=== PATIENT | female | born 1945 | race Caucasian/White ===

== ENCOUNTER 2017-05-01 06:20 | Day surgery (SDC) | payer MEDICARE, OTHER ==
[2017-05-01] MEDS ORDERED: fentaNYL 100 MCG/2 ML SDV ONE (07:11)
[2017-05-01] MEDS ORDERED: Propofol 200 MG/20 ML SDV ONE ×2 (07:11→07:56)
[2017-05-01] MEDS: Lactated Ringers 1,000 ML IV SCH ×2 (07:13→13:04)
[2017-05-01] MEDS ORDERED: Dicyclomine 10 MG Cap PO ONE (11:00)
[2017-05-01 13:17] VITALS: BP 159/87
--- NOTE | 2017-05-01 14:07 | OR ---
DATE OF PROCEDURE: 05/01/2017 PREOPERATIVE DIAGNOSIS: Colon cancer screening. POSTOPERATIVE DIAGNOSIS: Diverticulosis, three colon polyps. PROCEDURE PERFORMED: Colonoscopy to the cecum with snare cautery polypectomy of cecal polyp, biopsy and snare cautery polypectomy of right colon polyp, and biopsy resection of rectal polyp. ANESTHESIA: Subarachnoid block. INDICATION: This 72-year-old white female is referred for a colonoscopy for colon cancer screening. She says her last colonoscopic exam was done elsewhere about 10 years ago. I counseled her for the procedure including risks and alternatives, and she gave her informed consent to proceed. DESCRIPTION OF PROCEDURE: The patient was placed in the left lateral decubitus position. IV anesthesia was administered by the Anesthesia Service. Time-out was held. A rectal exam was performed, which was unremarkable. The flexible video Olympus colonoscope was introduced through her anus, up her rectum, and out her colon, all the way to the cecum. EN route, we saw several left-sided diverticula. There was no bleeding or inflammation associated with any of them. In the cecum, we saw a sessile polyp which was removed with the snare, this involved placing the snare about its base, elevating up away from bowel wall, applying electrocautery as was amputated. The polyp was aspirated through the scope and captured in a polyp trap. There was some residual polypoid tissue which was removed, this had the appearance of a serrated sessile adenoma. The scope was then slowly withdrawn, examining the mucosa throughout. In the right colon, we saw another polyp. We initially biopsied it, it was too large to remove using this technique. The snare was passed about its base, it was elevated up away from the bowel wall as electrocautery was applied amputating the polyp. The scope was withdrawn further. No other lesions were noted other than diverticula until the rectum was reached. Here, a small polyp was seen, which was removed with the biopsy forceps. The scope was retroflexed in the rectum with the distal rectum appearing unremarkable. The scope was straightened and removed. She tolerated the procedure well. Adis Medina MD /[id number]
[2017-05-01] MEDS ORDERED: Lidocaine 1% 2 ML ONE (14:23)
== END 2017-05-01 13:15 | disposition home or self-care (01) ==
LOC: JP.SDS 06:20
PROVIDERS: ATTEND Surgery
DX: Z12.11 Encounter for screening for malignant neoplasm of colon (principal); D12.0 Benign neoplasm of cecum; D12.2 Benign neoplasm of ascending colon; K62.1 Rectal polyp; K57.30 Diverticulosis of large intestine without perforation or abscess without bleeding; I12.9 Hypertensive chronic kidney disease with stage 1 through stage 4 chronic kidney disease, or unspecified chronic kidney disease; N18.9 Chronic kidney disease, unspecified; K21.9 Gastro-esophageal reflux disease without esophagitis; Z79.899 Other long term (current) drug therapy
CPT/HCPCS: 45380; 45385; A9270; J2704; J3010; J7120; 88305

== ENCOUNTER 2018-02-19 11:28 | Emergency (ER) | payer MEDICARE, OTHER ==
[2018-02-19 11:46] VITALS: BP 146/70
--- NOTE | 2018-02-19 12:31 | EDM.PDOC ---
ED HPI GENERAL MEDICAL PROBLEM - General Chief Complaint: General Stated Complaint: RIGHT EAR, RIGHT SHOULDER, BOTH KNEES HURT Time Seen by Provider: 02/19/18 12:16 Source of Information: Reports: Patient, Family, RN Notes Reviewed History Limitations: Reports: No Limitations - History of Present Illness INITIAL COMMENTS - FREE TEXT/NARRATIVE: 73-year-old female presents to the emergency department today with complaint of right ear pain for the last 2 weeks, right shoulder pain for the last 6 weeks and right knee pain for the last 2 months. She states she denies any trauma no repetitive motion she has used Tylenol only once a day which has provided relief but she is concerned about taking any more Tylenol. She is on dialysis for end-stage renal disease peritoneal which she does at home. Denies any nausea, vomiting, fevers, shortness of breath, chest pain, or GI symptomatology. right ear right shoulder, right knee and left knee Pain Score (Numeric/FACES): 8 - Related Data Allergies Allergy/AdvReac Type Severity Reaction Status Date / Time No Known Allergies Allergy Verified 02/19/18 11:47 Home Meds: Home Meds Metoprolol Tartrate 25 mg PO BID 04/26/17 [History] Mirtazapine [Remeron] 15 mg PO BEDTIME 04/26/17 [History] Polyethylene Glycol 3350 [MiraLAX] 3 tbsp PO DAILY 04/26/17 [History] Vitamin B Complex [B Complex] 1 each PO DAILY 04/26/17 [History] Past Medical History HEENT History: Reports: Impaired Vision Cardiovascular History: Reports: Hypertension Gastrointestinal History: Reports: Chronic Constipation 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 History: Reports: Psychiatric History: Reports: Bipolar, Depression - Infectious Disease History Infectious Disease History: Reports: Measles - Past Surgical History HEENT Surgical History: Reports: Tonsillectomy Cardiovascular Surgical History: Reports: None GI Surgical History: Reports: Colonoscopy Female Surgical History: Reports: Hysterectomy Social & Family History - Family History Family Medical History: Noncontributory - Tobacco Use Smoking Status *Q: Former Smoker Used Tobacco, but Quit: Yes Month/Year Tobacco Last Used: 40 years - Caffeine Use Caffeine Use: Reports: Coffee - Recreational Drug Use Recreational Drug Use: No ED ROS GENERAL - Review of Systems Review Of Systems: See Below Constitutional: Reports: No Symptoms HEENT: Reports: Ear Pain (Right side) Respiratory: Reports: No Symptoms Cardiovascular: Reports: No Symptoms GI/Abdominal: Reports: No Symptoms : Reports: No Symptoms Musculoskeletal: Reports: Shoulder Pain, Joint Pain (Knee pain) Skin: Reports: Rash Neurological: Reports: No Symptoms ED EXAM, GENERAL - Physical Exam Exam: See Below Free Text/Narrative:: General: Female, not in any distress, alert and oriented x3 HEENT: head is atraumatic normocephalic, eyes pupils equal round reactive to light, sclera clear no conjunctivitis appreciated. Ears tympanic membranes clear and rojas landmarks and light reflex are present bilaterally canals are clear. Nose no septal deviation, nares are clear, no blood present. Mouth mucosa is moist and pink no erythema or exudate noted in soft palate, tongue is midline uvula is midline, dentition is intact. Neck: Supple no thyromegaly no tracheal deviation. Nodes: Cervical nodes subclavicular nodes nontender no palpable lymphadenopathy noted. Lungs: clear to auscultation bilaterally with symmetrical respirations, no adventitious noise appreciated. CV: Regular rate and rhythm S1 and S2 appreciated no murmurs rubs or gallops noted. Abdomen: Soft, nontender, no palpable masses or organomegaly appreciated, no distention no guarding bowel sounds are present, Neuro: Cranial nerves II through XII grossly intact Skin: Warm and dry, intact Extremities: No limitation of right shoulder I don't appreciate any erythema there is no edema noted she only has limited range of motion of approximately 90 abduction, examination the right knee I don't appreciate any erythema there is no edema noted there is no joint line tenderness varus valgus maneuvers are negative Kristina's is negative, pedal pulse is +2 Course - Vital Signs Last Recorded V/S: Last Vital Signs Temp 98.0 F 02/19/18 11:41 Pulse 62 02/19/18 11:41 Resp 18 02/19/18 11:41 BP 146/70 H 02/19/18 11:41 Pulse Ox 100 02/19/18 11:41 - Orders/Labs/Meds Orders: Active Orders 24 hr Category Date Time Status URIC ACID [CHEM] Stat Lab 02/19/18 12:40 Ordered Labs: Laboratory Tests 02/19/18 02/19/18 02/19/18 Range/Units 12:40 12:40 12:40 WBC 8.7 (4.5-11.0) K/uL RBC 3.68 (3.30-5.50) M/uL Hgb 11.7 L (12.0-15.0) g/dL Hct 36.0 (36.0-48.0) % MCV 98 (80-98) fL MCH 32 H (27-31) pg MCHC 33 (32-36) % Plt Count 189 (150-400) K/uL Neut % (Auto) 70 H (36-66) % Lymph % (Auto) 20 L (24-44) % [place] % (Auto) 8 H (2-6) % Eos % (Auto) 2 (2-4) % Baso % (Auto) 0 (0-1) % Sodium 146 (140-148) mmol/L Potassium 4.1 (3.6-5.2) mmol/L Chloride 110 H (100-108) mmol/L Carbon Dioxide 22 (21-32) mmol/L Anion Gap 18.1 H (5.0-14.0) mmol/L BUN 45 H (7-18) mg/dL Creatinine 7.3 H* (0.6-1.0) mg/dL Est Cr Clr Drug Dosing 5.84 mL/min Estimated GFR (MDRD) 5 L (>60) Glucose 87 (74-106) mg/dL Uric Acid 7.6 H (2.6-6.2) mg/dL Calcium 9.3 (8.5-10.1) mg/dL Total Bilirubin 0.4 (0.2-1.0) mg/dL AST 17 (15-37) U/L ALT 27 (12-78) U/L Alkaline Phosphatase 90 (46-116) U/L Troponin I (0.000-0.056) ng/mL Total Protein 6.3 L (6.4-8.2) g/dL Albumin 3.0 L (3.4-5.0) g/dL Globulin 3.3 (2.3-3.5) g/dL Albumin/Globulin Ratio 0.9 L (1.2-2.2) / Range/Units 12:40 WBC (4.5-11.0) K/uL RBC (3.30-5.50) M/uL Hgb (12.0-15.0) g/dL Hct (36.0-48.0) % MCV (80-98) fL MCH (27-31) pg MCHC (32-36) % Plt Count (150-400) K/uL Neut % (Auto) (36-66) % Lymph % (Auto) (24-44) % [place] % (Auto) (2-6) % Eos % (Auto) (2-4) % Baso % (Auto) (0-1) % Sodium (140-148) mmol/L Potassium (3.6-5.2) mmol/L Chloride (100-108) mmol/L Carbon Dioxide (21-32) mmol/L Anion Gap (5.0-14.0) mmol/L BUN (7-18) mg/dL Creatinine (0.6-1.0) mg/dL Est Cr Clr Drug Dosing mL/min Estimated GFR (MDRD) (>60) Glucose (74-106) mg/dL Uric Acid (2.6-6.2) mg/dL Calcium (8.5-10.1) mg/dL Total Bilirubin (0.2-1.0) mg/dL AST (15-37) U/L ALT (12-78) U/L Alkaline Phosphatase (46-116) U/L Troponin I < 0.017 (0.000-0.056) ng/mL Total Protein (6.4-8.2) g/dL Albumin (3.4-5.0) g/dL Globulin (2.3-3.5) g/dL Albumin/Globulin Ratio (1.2-2.2) Departure - Departure Time of Disposition: 13:57 Disposition: Home, Self-Care 01 Condition: Fair Clinical Impression: Frozen shoulder Qualifiers: Laterality: right Qualified Code(s): M75.01 - Adhesive capsulitis of right shoulder - Discharge Information Referrals: Katrin Floyd PA [Primary Care Provider] - Forms: ED Department Discharge Additional Instructions: Try Tylenol as needed for pain control may take 650 mg 3 times a day, please report to orthopedics tomorrow for further evaluation of the shoulder - My Orders Last 24 Hours: My Active Orders 02/19/18 12:40 URIC ACID [CHEM] Stat - Assessment/Plan Last 24 Hours: My Active Orders 02/19/18 12:40 URIC ACID [CHEM] Stat Plan: Assessment Acuity = acute Site and laterality = frozen shoulder right side, osteoarthritis right knee Etiology = unclear etiology Manifestations = none Location of injury = Home Lab values = CBC unremarkable, creatinine elevated at 7.3 consistent with end- stage renal disease stage VD, uric acid elevated at 7.6 of uncertain significance, x-rays describe shoulder and knee above Plan Called discussed case with orthopedics she will have an appointment with orthopedics tomorrow for shoulder injection and further evaluation as needed, she is going to use Tylenol for pain control This note was dictated using [employer] voice recognition software please call with any questions on syntax or grammar.
--- NOTE | 2018-02-19 13:15 | CR ---
Shoulder Comp Rt INDICATION: pain FINDINGS: Minimal hypertrophic change AC joint. Glenohumeral joint is intact. Exam otherwise negative .
--- NOTE | 2018-02-19 13:16 | CR ---
Knee 3V Rt INDICATION: pain FINDINGS: Moderate medial compartment narrowing and hypertrophic change. Hypertrophic change patellof emoral compartment. Knee effusion or synovitis.
== END 2018-02-19 14:29 | disposition home or self-care (01) ==
LOC: JP.ED 11:28
DX: M75.01 Adhesive capsulitis of right shoulder (principal); I10 Essential (primary) hypertension; Z79.899 Other long term (current) drug therapy; Z87.891 Personal history of nicotine dependence
CPT/HCPCS: 36415; 73030-26-RT; 73030-RT; 73562-26-RT; 73562-RT; 80053; 84484; 84550; 85025; 99284-25

== ENCOUNTER 2018-06-24 11:57 | Emergency (ER) | payer MEDICARE, OTHER ==
[2018-06-24] MEDS ORDERED: fentaNYL 100 MCG/2 ML SDV IVPUSH ONE (13:43)
[2018-06-24] MEDS ORDERED: Lactated Ringers 1,000 ML IV SCH (13:45)
--- NOTE | 2018-06-24 13:47 | EDM.PDOC ---
ED HPI GENERAL MEDICAL PROBLEM - General Chief Complaint: Abdominal Pain Stated Complaint: ABD PAINS Time Seen by Provider: 06/24/18 13:00 Source of Information: Reports: Patient, Family, RN Notes Reviewed History Limitations: Reports: No Limitations - History of Present Illness INITIAL COMMENTS - FREE TEXT/NARRATIVE: 73-year-old female presents to the emergency department today complaint of abdominal pain, she does have a known history of peritoneal dialysis states she' s had increasing abdominal pain for the last 24 hours as well as chills, no nausea no vomiting no shortness of breath no fevers lower abdomen Pain Score (Numeric/FACES): 8 - Related Data Allergies Allergy/AdvReac Type Severity Reaction Status Date / Time No Known Allergies Allergy Verified 02/19/18 11:47 Home Meds: Home Meds Metoprolol Tartrate 25 mg PO BID 04/26/17 [History] Mirtazapine [Remeron] 15 mg PO BEDTIME 04/26/17 [History] Polyethylene Glycol 3350 [MiraLAX] 3 tbsp PO DAILY 04/26/17 [History] Vitamin B Complex [B Complex] 1 each PO DAILY 04/26/17 [History] Past Medical History HEENT History: Reports: Impaired Vision Cardiovascular History: Reports: Hypertension Gastrointestinal History: Reports: Chronic Constipation 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: Musculoskeletal History: Reports: Other (See Below) Other Musculoskeletal History: bilaterat knee and rt shoulder pain, neck pain Psychiatric History: Reports: Bipolar, Depression - Infectious Disease History Infectious Disease History: Reports: Measles - Past Surgical History HEENT Surgical History: Reports: Tonsillectomy GI Surgical History: Reports: Colonoscopy, Other (See Below) Other GI Surgeries/Procedures: peritional dialysis catheter Female Surgical History: Reports: Hysterectomy Social & Family History - Family History Family Medical History: Noncontributory - Tobacco Use Smoking Status *Q: Never Smoker Second Hand Smoke Exposure: No - Caffeine Use Caffeine Use: Reports: Coffee, Soda, Tea - Recreational Drug Use Recreational Drug Use: No ED ROS GENERAL - Review of Systems Review Of Systems: See Below Constitutional: Reports: Chills. Denies: Fever HEENT: Reports: No Symptoms Respiratory: Reports: No Symptoms Cardiovascular: Reports: No Symptoms GI/Abdominal: Reports: Abdominal Pain. Denies: Nausea : Reports: No Symptoms Musculoskeletal: Reports: No Symptoms Skin: Reports: No Symptoms ED EXAM, GI/ABD - Physical Exam Exam: See Below Text/Narrative:: General: Female, not in any distress, alert and oriented x3 HEENT: head is atraumatic normocephalic, eyes pupils equal round reactive to light, sclera clear no conjunctivitis appreciated. Ears tympanic membranes clear and rojas landmarks and light reflex are present bilaterally canals are clear. Nose no septal deviation, nares are clear, no blood present. Mouth mucosa is moist and pink no erythema or exudate noted in soft palate, tongue is midline uvula is midline, dentition is intact. Neck: Supple no thyromegaly no tracheal deviation. Nodes: Cervical nodes subclavicular nodes nontender no palpable lymphadenopathy noted. Lungs: clear to auscultation bilaterally with symmetrical respirations, no adventitious noise appreciated. CV: Regular rate and rhythm S1 and S2 appreciated no murmurs rubs or gallops noted. Abdomen: Soft, generalized tenderness to palpation, no palpable masses or organomegaly appreciated, no distention no guarding bowel sounds are present, . Neuro: Cranial nerves II through XII grossly intact Skin: Warm and dry, intact Extremities: No lower extremity edema appreciated, Course - Vital Signs Last Recorded V/S: Last Vital Signs Temp 97.9 F 06/24/18 12:48 Pulse 69 06/24/18 12:48 Resp 16 06/24/18 12:48 BP 142/73 H 06/24/18 12:48 Pulse Ox 99 06/24/18 12:48 - Orders/Labs/Meds Orders: Active Orders 24 hr Category Date Time Status CULTURE BLOOD [BC] Routine Lab 06/24/18 13:39 Received CULTURE BLOOD [BC] Routine Lab 06/24/18 13:42 Received CULTURE BODY FLUID + SMEAR [RM] Routine Lab 06/24/18 13:39 Results UA W/MICROSCOPIC [URIN] Routine Lab 06/24/18 13:39 Received Lactated Ringers [Ringers, Lactated] 1,000 ml Med 06/24/18 13:45 Active IV STAT Piperacillin/Tazobactam/Dext [Zosyn in Dextrose Iso- Med 06/24/18 14:45 Active Osmotic 3.375 GM] 3.375 gm Premix Bag 1 bag IV ONETIME Medication Orders Lactated Ringer's (Ringers, Lactated) 1,000 mls @ 500 mls/hr IV STAT LYLE Last Admin: 06/24/18 13:50 Dose: 500 mls/hr Piperacillin/Tazobactam/ (Dextrose 3.375 gm/ Premix) 50 mls @ 100 mls/hr IV ONETIME ONE Stop: 06/24/18 15:14 Labs: Laboratory Tests 06/24/18 06/24/18 06/24/18 Range/Units 13:39 13:39 13:39 WBC 9.3 (4.5-11.0) K/uL RBC 3.09 L (3.30-5.50) M/uL Hgb 10.4 L (12.0-15.0) g/dL Hct 32.4 L (36.0-48.0) % MCV 105 H (80-98) fL MCH 34 H (27-31) pg MCHC 32 (32-36) % Plt Count 164 (150-400) K/uL Neut % (Auto) 82 H (36-66) % Lymph % (Auto) 11 L (24-44) % [place] % (Auto) 7 H (2-6) % Eos % (Auto) 1 L (2-4) % Baso % (Auto) 0 (0-1) % Sodium 145 (140-148) mmol/L Potassium 3.9 (3.6-5.2) mmol/L Chloride 109 H (100-108) mmol/L Carbon Dioxide 27 (21-32) mmol/L Anion Gap 12.9 (5.0-14.0) mmol/L BUN 44 H (7-18) mg/dL Creatinine 7.3 H* (0.6-1.0) mg/dL Est Cr Clr Drug Dosing 5.84 mL/min Estimated GFR (MDRD) 5 L (>60) Glucose 88 (74-106) mg/dL Lactic Acid 2.2 H (0.4-2.0) mmol/L Calcium 9.4 (8.5-10.1) mg/dL Total Bilirubin 0.3 (0.2-1.0) mg/dL AST 10 L (15-37) U/L ALT 17 (12-78) U/L Alkaline Phosphatase 65 (46-116) U/L Total Protein 5.7 L (6.4-8.2) g/dL Albumin 2.4 L (3.4-5.0) g/dL Globulin 3.3 (2.3-3.5) g/dL Albumin/Globulin Ratio 0.7 L (1.2-2.2) Lipase 222 (73-393) U/L Fluid Type Fluid WBC /ul Fluid RBC /ul Fluid Diff Comment Fluid Mononuclear Cell % Fl Polymorphonucl Cell % 06/24/18 Range/Units 13:39 WBC (4.5-11.0) K/uL RBC (3.30-5.50) M/uL Hgb (12.0-15.0) g/dL Hct (36.0-48.0) % MCV (80-98) fL MCH (27-31) pg MCHC (32-36) % Plt Count (150-400) K/uL Neut % (Auto) (36-66) % Lymph % (Auto) (24-44) % [place] % (Auto) (2-6) % Eos % (Auto) (2-4) % Baso % (Auto) (0-1) % Sodium (140-148) mmol/L Potassium (3.6-5.2) mmol/L Chloride (100-108) mmol/L Carbon Dioxide (21-32) mmol/L Anion Gap (5.0-14.0) mmol/L BUN (7-18) mg/dL Creatinine (0.6-1.0) mg/dL Est Cr Clr Drug Dosing mL/min Estimated GFR (MDRD) (>60) Glucose (74-106) mg/dL Lactic Acid (0.4-2.0) mmol/L Calcium (8.5-10.1) mg/dL Total Bilirubin (0.2-1.0) mg/dL AST (15-37) U/L ALT (12-78) U/L Alkaline Phosphatase (46-116) U/L Total Protein (6.4-8.2) g/dL Albumin (3.4-5.0) g/dL Globulin (2.3-3.5) g/dL Albumin/Globulin Ratio (1.2-2.2) Lipase (73-393) U/L Fluid Type Peritoneal fluid Fluid WBC 7875 /ul Fluid RBC 675 /ul Fluid Diff Comment Fluid Mononuclear Cell 5 % Fl Polymorphonucl Cell 95 % Meds: Medications Generic Name Dose Route Start Last Admin Trade Name Freprema PRN Reason Stop Dose Admin Lactated Ringer's 1,000 mls @ 500 mls/hr 06/24/18 13:45 06/24/18 13:50 Ringers, Lactated IV 500 mls/hr STAT LYLE Administration Piperacillin/Tazobactam/ 50 mls @ 100 mls/hr 06/24/18 14:45 Dextrose 3.375 gm/ Premix IV 06/24/18 15:14 ONETIME ONE Discontinued Medications Generic Name Dose Route Start Last Admin Trade Name Freq PRN Reason Stop Dose Admin Fentanyl 50 mcg 06/24/18 13:43 06/24/18 13:51 Sublimaze IVPUSH 06/24/18 13:44 50 mcg ONETIME ONE Administration Departure - Departure Time of Disposition: 14:48 Disposition: DC/Tfer to Acute Hospital 02 Condition: Fair Clinical Impression: Peritonitis, Peritoneal dialysis status - Discharge Information Referrals: Katrin Floyd PA [Primary Care Provider] - Forms: ED Department Discharge - My Orders Last 24 Hours: My Active Orders 06/24/18 13:39 CULTURE BLOOD [BC] Routine CULTURE BODY FLUID + SMEAR [RM] Routine UA W/MICROSCOPIC [URIN] Routine 06/24/18 13:42 CULTURE BLOOD [BC] Routine 06/24/18 13:45 Lactated Ringers [Ringers, Lactated] 1,000 ml IV STAT 06/24/18 14:45 Piperacillin/Tazobactam/Dext [Zosyn in Dextrose Iso-Osmotic 3.375 GM] 3.375 gm Premix Bag 1 bag IV ONETIME - Assessment/Plan Last 24 Hours: My Active Orders 06/24/18 13:39 CULTURE BLOOD [BC] Routine CULTURE BODY FLUID + SMEAR [RM] Routine UA W/MICROSCOPIC [URIN] Routine 06/24/18 13:42 CULTURE BLOOD [BC] Routine 06/24/18 13:45 Lactated Ringers [Ringers, Lactated] 1,000 ml IV STAT 06/24/18 14:45 Piperacillin/Tazobactam/Dext [Zosyn in Dextrose Iso-Osmotic 3.375 GM] 3.375 gm Premix Bag 1 bag IV ONETIME Plan: Assessment Acuity = acute Site and laterality = peritonitis complicated patient with known history of peritoneal dialysis Etiology = suspicious for bacterial cause Manifestations = chills and abdominal pain Location of injury = Home Lab values = hemoglobin low at 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 Cm kindly accepted the patient in transport she'll be transported via EMS ground and biotics of Zosyn have been initiated as well as lactated Ringer for fluids, will be transferred to [facility] This note was dictated using [employer] voice recognition software please call with any questions on syntax or grammar.
[2018-06-24] MEDS ORDERED: Piperacillin/Tazobactam 3.375 GM in Sodium Chloride 0.9% 50 ML IV SCH (14:30)
[2018-06-24] MEDS ORDERED: Piperacillin/Tazobactam/Dext 3.375 GM in Premix Bag 1 BAG IV ONE (14:45)
[2018-06-24 16:36] VITALS: BP 169/79
== END 2018-06-24 16:36 ==
LOC: JP.ED 11:57
DX: K65.0 Generalized (acute) peritonitis (principal); I10 Essential (primary) hypertension; Z99.2 Dependence on renal dialysis
CPT/HCPCS: 36415; 80053; 81001; 83605; 83690; 85025; 87040; 87070; 87205; 89050; 96361; 96365; 96375; 99284; J2543; J3010; J7120

== ENCOUNTER 2020-04-02 13:11 | Emergency (ER) | payer MEDICARE, OTHER ==
--- NOTE | 2020-04-02 15:23 | EDM.PDOC ---
ED HPI GENERAL MEDICAL PROBLEM - General Chief Complaint: Abdominal Pain Stated Complaint: LOWER ABD (STOMACH) PAIN Time Seen by Provider: 04/02/20 14:30 Source of Information: Reports: Patient History Limitations: Reports: No Limitations - History of Present Illness INITIAL COMMENTS - FREE TEXT/NARRATIVE: 75-year-old female with a history of end-stage renal disease on home peritoneal dialysis nightly presents to the emergency department with abdominal pain x3 days. Her pain is sharp and aching. It is moderately severe. It is nonradiating. She notes that in the day and it is better by morning after a night of peritoneal dialysis. The patient has had a history of peritonitis for which she was hospitalized a couple of years ago. She denies chills or fever. She has no nausea or vomiting. She denies a cough. She is urinating every day. Her kidney disease came from medication (Lipitor). She is not diabetic. She is otherwise immunocompetent. - Related Data Allergies Allergy/AdvReac Type Severity Reaction Status Date / Time No Known Allergies Allergy Verified 02/19/18 11:47 Home Meds: Home Meds Metoprolol Tartrate 25 mg PO BID 04/26/17 [History] Mirtazapine [Remeron] 15 mg PO BEDTIME 04/26/17 [History] Polyethylene Glycol 3350 [MiraLAX] 3 tbsp PO DAILY 04/26/17 [History] Past Medical History HEENT History: Reports: Impaired Vision Cardiovascular History: Reports: Hypertension Gastrointestinal History: Reports: Chronic Constipation Genitourinary History: Reports: Dialysis [employer] History: Reports: Musculoskeletal History: Reports: Other (See Below) Other Musculoskeletal History: bilaterat knee and rt shoulder pain, neck pain Psychiatric History: Reports: Bipolar, Depression Do You Give Correction Boluses or Sliding Scale: No - Infectious Disease History Infectious Disease History: Reports: Measles - Past Surgical History HEENT Surgical History: Reports: Tonsillectomy GI Surgical History: Reports: Colonoscopy, Other (See Below) Other GI Surgeries/Procedures: peritional dialysis catheter Female Surgical History: Reports: Hysterectomy Social & Family History - Family History Family Medical History: Noncontributory - Tobacco Use Smoking Status *Q: Never Smoker - Caffeine Use Caffeine Use: Reports: Coffee ED ROS GENERAL - Review of Systems Review Of Systems: See Below Constitutional: Denies: Fever, Chills Respiratory: Reports: No Symptoms, Shortness of Breath Cardiovascular: Reports: Chest Pain GI/Abdominal: Reports: Abdominal Pain. Denies: Nausea, Vomiting Neurological: Reports: No Symptoms ED EXAM, GI/ABD - Physical Exam Exam: See Below Exam Limited By: No Limitations General Appearance: Alert, WD/WN, No Apparent Distress Ears: Normal External Exam, Normal Canal, Normal TMs Throat/Mouth: Normal Inspection, Normal Lips, Normal Teeth Neck: Normal Inspection, Supple, Non-Tender Respiratory/Chest: No Respiratory Distress, Lungs Clear, Normal Breath Sounds Cardiovascular: Normal Peripheral Pulses, Regular Rate, Rhythm, No Murmur, No Rub GI/Abdominal Exam: Normal Bowel Sounds, Other Neurological: Alert, Oriented Course - Vital Signs Text/Narrative:: This patient who has end-stage renal disease is getting daily peritoneal dialysis presents with abdominal pain x3 days. She is not running a fever vital signs are stable. She has a tender abdomen on palpation. Her peritoneal drainage fluid was positive with 100 PMNs. Her lab results revealed a normal white blood count however her CRP is increased. Creatinine is 7.0. Electrolytes are normal. The patient is receiving 1 g of vancomycin and 400 mg of Cipro IV. Transfer to [facility] is being sought for initiation of intraperitoneal antibiotics. The patient's CODE STATUS is full and she is in stable condition. She and her agree with this plan. Last Recorded V/S: Last Vital Signs Temp 35.8 C L 04/02/20 14:36 Pulse 73 04/02/20 14:36 Resp 12 04/02/20 14:36 BP 157/61 H 04/02/20 14:36 Pulse Ox 98 04/02/20 14:36 - Orders/Labs/Meds Orders: Active Orders 24 hr Category Date Time Status EKG Documentation Completion [RC] ASDIRECTED Care 04/02/20 15:18 Active Chest 1V Frontal [CR] Stat Exams 04/02/20 15:15 Taken CULTURE BLOOD [BC] Urgent Lab 04/02/20 15:30 Received CULTURE BLOOD [BC] Urgent Lab 04/02/20 15:30 Received CULTURE BODY FLUID + SMEAR [RM] Stat Lab 04/02/20 15:48 Results Ciprofloxacin in D5W [Cipro in D5W 400 MG/200 ML] 400 Med 04/02/20 17:10 Active mg Premix Bag 1 bag IV ONETIME Vancomycin 1 gm Med 04/02/20 17:13 Active Sodium Chloride 0.9% [Normal Saline] 250 ml IV ONETIME Blood Culture x2 Reflex Set [OM.PC] Urgent Oth 04/02/20 15:18 Ordered EKG 12 Lead [EK] Routine Ther 04/02/20 15:15 Ordered Medication Orders Ciprofloxacin/Dextrose 400 mg/ (Premix) 200 mls @ 200 mls/hr IV ONETIME ONE Stop: 04/02/20 18:09 Vancomycin HCl 1 gm/ Sodium (Chloride) 250 mls @ 150 mls/hr IV ONETIME ONE Stop: 04/02/20 18:52 Labs: Laboratory Tests 04/02/20 04/02/20 04/02/20 Range/Units 15:30 15:30 15:30 WBC 8.7 (4.5-11.0) K/uL RBC 2.88 L (3.30-5.50) M/uL Hgb 9.7 L (12.0-15.0) g/dL Hct 30.1 L (36.0-48.0) % MCV 105 H (80-98) fL MCH 34 H (27-31) pg MCHC 32 (32-36) % Plt Count 190 (150-400) K/uL Neut % (Auto) 76 H (36-66) % Lymph % (Auto) 14 L (24-44) % [place] % (Auto) 8 H (2-6) % Eos % (Auto) 2 (2-4) % Baso % (Auto) 0 (0-1) % Sodium 133 L (140-148) mmol/L Potassium 3.8 (3.6-5.2) mmol/L Chloride 104 (100-108) mmol/L Carbon Dioxide 25 (21-32) mmol/L Anion Gap 7.8 (5.0-14.0) mmol/L BUN 34 H (7-18) mg/dL Creatinine 7.0 H* (0.6-1.0) mg/dL Est Cr Clr Drug Dosing 5.90 mL/min Estimated GFR (MDRD) 6 L (>60) Glucose 94 (74-106) mg/dL Lactic Acid 1.1 (0.4-2.0) mmol/L Calcium 8.0 L (8.5-10.1) mg/dL Total Bilirubin 0.3 (0.2-1.0) mg/dL AST 11 L (15-37) U/L ALT 20 (12-78) U/L Alkaline Phosphatase 56 (46-116) U/L C-Reactive Protein 2.47 H (0.0-0.3) mg/dL Total Protein 5.5 L (6.4-8.2) g/dL Albumin 2.2 L (3.4-5.0) g/dL Globulin 3.3 (2.3-3.5) g/dL Albumin/Globulin Ratio 0.7 L (1.2-2.2) Lipase 385 (73-393) U/L Urine Color (YELLOW) Urine Appearance (CLEAR) Urine pH (5.0-8.0) Ur Specific [place] (1.008-1.030) Urine Protein (NEGATIVE) mg/dL Urine Glucose (UA) (NEGATIVE) mg/dL Urine Ketones (NEGATIVE) mg/dL Urine Occult Blood (NEGATIVE) Urine Nitrite (NEGATIVE) Urine Bilirubin (NEGATIVE) Urine Urobilinogen (0.2-1.0) EU/dL Ur Leukocyte Esterase (NEGATIVE) Urine RBC (0-5) Urine WBC (0-5) Ur Epithelial Cells Amorphous Sediment Urine Bacteria Urine Mucus Fluid Type Fluid WBC /ul Fluid RBC /ul Fluid Diff Comment Fluid Mononuclear Cell % Fl Polymorphonucl Cell % 04/02/20 04/02/20 Range/Units 16:15 17:01 WBC (4.5-11.0) K/uL RBC (3.30-5.50) M/uL Hgb (12.0-15.0) g/dL Hct (36.0-48.0) % MCV (80-98) fL MCH (27-31) pg MCHC (32-36) % Plt Count (150-400) K/uL Neut % (Auto) (36-66) % Lymph % (Auto) (24-44) % [place] % (Auto) (2-6) % Eos % (Auto) (2-4) % Baso % (Auto) (0-1) % Sodium (140-148) mmol/L Potassium (3.6-5.2) mmol/L Chloride (100-108) mmol/L Carbon Dioxide (21-32) mmol/L Anion Gap (5.0-14.0) mmol/L BUN (7-18) mg/dL Creatinine (0.6-1.0) mg/dL Est Cr Clr Drug Dosing mL/min Estimated GFR (MDRD) (>60) Glucose (74-106) mg/dL Lactic Acid (0.4-2.0) mmol/L Calcium (8.5-10.1) mg/dL Total Bilirubin (0.2-1.0) mg/dL AST (15-37) U/L ALT (12-78) U/L Alkaline Phosphatase (46-116) U/L C-Reactive Protein (0.0-0.3) mg/dL Total Protein (6.4-8.2) g/dL Albumin (3.4-5.0) g/dL Globulin (2.3-3.5) g/dL Albumin/Globulin Ratio (1.2-2.2) Lipase (73-393) U/L Urine Color Yellow (YELLOW) Urine Appearance Clear (CLEAR) Urine pH 8.0 (5.0-8.0) Ur Specific [place] 1.015 (1.008-1.030) Urine Protein 30 H (NEGATIVE) mg/dL Urine Glucose (UA) Negative (NEGATIVE) mg/dL Urine Ketones Negative (NEGATIVE) mg/dL Urine Occult Blood Trace-lysed H (NEGATIVE) Urine Nitrite Negative (NEGATIVE) Urine Bilirubin Negative (NEGATIVE) Urine Urobilinogen 0.2 (0.2-1.0) EU/dL Ur Leukocyte Esterase Negative (NEGATIVE) Urine RBC 0-5 (0-5) Urine WBC 0-5 (0-5) Ur Epithelial Cells Few Amorphous Sediment Not seen Urine Bacteria Few Urine Mucus Not seen Fluid Type Peritoneal fluid Fluid WBC 1804 /ul Fluid RBC 3 /ul Fluid Diff Comment Peritoneal Fluid Mononuclear Cell 0 % Fl Polymorphonucl Cell 100 % Meds: Medications Generic Name Dose Route Start Last Admin Trade Name Freq PRN Reason Stop Dose Admin Ciprofloxacin/Dextrose 400 mg/ 200 mls @ 200 mls/hr 04/02/20 17:10 Premix IV 04/02/20 18:09 ONETIME ONE Vancomycin HCl 1 gm/ Sodium 250 mls @ 150 mls/hr 04/02/20 17:13 Chloride IV 04/02/20 18:52 ONETIME ONE Departure - Departure Time of Disposition: 17:56 Disposition: DC/Tfer to Acute Hospital 02 Condition: Good Clinical Impression: Peritonitis - Discharge Information Referrals: PCP,None [Primary Care Provider] - Forms: ED Department Discharge Sepsis Event Note (ED) - Evaluation Sepsis Screening Result: No Definite Risk - Focused Exam Vital Signs: Vital Signs Temp Pulse Resp BP Pulse Ox 04/02/20 14:36 35.8 C L 73 12 157/61 H 98 04/02/20 14:22 35.8 C L 73 12 157/61 H 98 - My Orders Last 24 Hours: My Active Orders 04/02/20 15:15 Chest 1V Frontal [CR] Stat EKG 12 Lead [EK] Routine 04/02/20 15:18 EKG Documentation Completion [RC] ASDIRECTED Blood Culture x2 Reflex Set [OM.PC] Urgent 04/02/20 15:30 CULTURE BLOOD [BC] Urgent CULTURE BLOOD [BC] Urgent 04/02/20 15:48 CULTURE BODY FLUID + SMEAR [RM] Stat 04/02/20 17:10 Ciprofloxacin in D5W [Cipro in D5W 400 MG/200 ML] 400 mg Premix Bag 1 bag IV ONETIME 04/02/20 17:13 Vancomycin 1 gm Sodium Chloride 0.9% [Normal Saline] 250 ml IV ONETIME - Assessment/Plan Last 24 Hours: My Active Orders 04/02/20 15:15 Chest 1V Frontal [CR] Stat EKG 12 Lead [EK] Routine 04/02/20 15:18 EKG Documentation Completion [RC] ASDIRECTED Blood Culture x2 Reflex Set [OM.PC] Urgent 04/02/20 15:30 CULTURE BLOOD [BC] Urgent CULTURE BLOOD [BC] Urgent 04/02/20 15:48 CULTURE BODY FLUID + SMEAR [RM] Stat 04/02/20 17:10 Ciprofloxacin in D5W [Cipro in D5W 400 MG/200 ML] 400 mg Premix Bag 1 bag IV ONETIME 04/02/20 17:13 Vancomycin 1 gm Sodium Chloride 0.9% [Normal Saline] 250 ml IV ONETIME
[2020-04-02] MEDS ORDERED: Ciprofloxacin in D5W 400 MG in Premix Bag 1 BAG IV ONE ×2 (17:10)
[2020-04-02 20:11] VITALS: BP 175/53; PULSE 78
[2020-04-02] MEDS ORDERED: cefTRIAXone 1 GM in Sodium Chloride 0.9% 50 ML IV ONE (20:21)
--- NOTE | 2020-04-05 09:33 | CR ---
CHEST: PA CLINICAL HISTORY:Chest pain COMPARISON:None FINDINGS: The heart size, pulmonary vascularity and hilar structures are normal. No infiltrate effusion or pneumothorax is seen. There is some blunting of the right cuspid which may be chronic. There are atherosclerotic changes in the aorta. IMPRESSION: No acute cardiopulmonary process.
== END 2020-04-02 21:15 ==
LOC: JP.ED 13:11
DX: K65.9 Peritonitis, unspecified (principal); I12.0 Hypertensive chronic kidney disease with stage 5 chronic kidney disease or end stage renal disease; N18.6 End stage renal disease; Z79.899 Other long term (current) drug therapy
CPT/HCPCS: 36415; 71045; 80053; 81001; 83605; 83690; 85025; 86140; 87040; 87070; 87205; 89050; 93005; 96365; 96366; 96367; 96368; 99285; J0696; J0744; J3370; J7050